=== PATIENT | male | born 1985 | race Caucasian/White ===

== ENCOUNTER 2023-04-27 09:55 | Emergency (ER) | payer OTHER ==
[~2023-04-27] VITALS: Ht 170.2 cm; Wt 82.0 kg
[2023-04-27 10:09] VITALS: BP 142/83; PULSE 55; RESP 18; TEMP 98.5; O2SAT 100
[2023-04-27] MEDS ORDERED: IBUP-2029 MT (10:29)
[2023-04-27] MEDS ORDERED: CEPH500C2 MT (10:29)
== END 2023-04-27 10:36 | disposition home or self-care (01) ==
LOC: ER 09:55
DX: L03.113 Cellulitis of right upper limb (principal)
CPT/HCPCS: 99283